=== PATIENT | male | born 1995 | race Two or more races ===

== ENCOUNTER 2019-06-12 13:08 | Emergency (ER) | payer SELFPAY ==
[2019-06-12] MEDS ORDERED: NORMAL SALINE 1000 ML 1,000 ML IV ONE (13:39)
--- NOTE | 2019-06-12 13:40 | ER Document Report ---
ED Medical Screen (RME) - General Chief Complaint: Abdominal Pain Stated Complaint: ABDOMINAL PAIN Time Seen by Provider: 06/12/19 13:32 Mode of Arrival: Ambulatory Information source: Patient Notes: Patient presents complaining of periumbilical tenderness that started about 30 minutes ago. Patient states that he has had episodes of abdominal pain off and on for several years. Patient denies any nausea vomiting diarrhea. Patient denies any fever. Patient denies any urinary symptoms. Patient does state that he is concerned he may be dehydrated. I have greeted and performed a rapid initial assessment of this patient. A comprehensive ED assessment and evaluation of the patient, analysis of test results and completion of the medical decision making process will be conducted by additional ED providers. Physical Exam - Vital signs Vitals: Temp Pulse Resp BP Pulse Ox 99.1 F 83 16 145/80 H 97 06/12/19 13:23 06/12/19 13:23 06/12/19 13:23 06/12/19 13:23 06/12/19 13:23 - General General appearance: Appears well, Alert Notes: Tenderness to the area just inferior of the umbilicus Course - Vital Signs Vital signs: Temp Pulse Resp BP Pulse Ox 99.1 F 83 16 145/80 H 97 06/12/19 13:23 06/12/19 13:23 06/12/19 13:23 06/12/19 13:23 06/12/19 13:23
[2019-06-12 14:08] LABS: ABSOLUTE EOSINOPHILS # (AUTO) 0.2 10^3/uL (0.0-0.6); ABSOLUTE LYMPHOCYTES (AUTO) 1.9 10^3/uL (0.5-4.7); ABSOLUTE MONOCYTES (AUTO) 0.7 10^3/uL (0.1-1.4); ABSOLUTE NEUT (AUTO) 5.2 10^3/uL (1.7-8.2); BASOPHILS % (AUTO) 0.6 % (0-2); EOSINOPHILS % (AUTO) 2.9 % (0-6); HEMATOCRIT 43.9 % (37.9-51.0); HEMOGLOBIN 15.6 g/dL (13.5-17.0); LYMPHOCYTES % (AUTO) 23.6 % (13-45); MEAN CORPUSCULAR HEMOGLOBIN 30.3 pg (27.0-33.4); MEAN CORPUSCULAR HGB CONC 35.5 g/dL (32.0-36.0); MEAN CORPUSCULAR VOLUME 85 fl (80-97); MONOCYTES % (AUTO) 8.2 % (3-13); PLATELET COUNT 221 10^3/uL (150-450); RED BLOOD COUNT 5.14 10^6/uL (4.35-5.55); RED CELL DISTRIBUTION WIDTH 13.6 % (11.5-14.0); SEGMENTED NEUTROPHILS % (AUTO) 64.7 % (42-78); TOTAL CELLS COUNTED % (AUTO) 100 %; WHITE BLOOD COUNT 8.1 10^3/uL (4.0-10.5)
--- NOTE | 2019-06-12 14:16 | ER Document Report ---
ED GI/ - General Chief Complaint: Abdominal Pain Stated Complaint: ABDOMINAL PAIN Time Seen by Provider: 06/12/19 13:32 Primary Care Provider: [facility] [Provider Group] - Follow up as needed [facility] [Provider Group] - Follow up as needed Mode of Arrival: Ambulatory Notes: Patient is a 23-year-old male who presents the emergency department with a chief complaint of abdominal pain. Patient reports about 30 minutes prior to arrival he had just eaten lunch which consisted of shrimp and noodles when he developed abdominal pain below his umbilicus. Patient reports he has had this same type of pain intermittently for years. Patient estimates about 5 years total. Patient reports that certain types of movement and heavy lifting seems to exacerbate the symptoms. Patient reports that his pain is actually been worse at times, but is not at its worst currently. Patient denies nausea, vomiting or diarrhea. Patient reports his last bowel movement was today. Patient reports he is a social drinker and does not drink on the weekends. Patient reports last night he had about 8-9 beers and a shot of liquor. Patient reports he did not vomit afterwards. Patient denies acid reflux or epigastric pain. Patient reports he is not currently been doing any heavy lifting. Patient reports he has been seen at different hospitals in the past for the same but was never given a diagnosis. Patient concern for possible dehydration and does report intermittent pain with urination. - Related Data Allergies/Adverse Reactions: No Known Allergies Allergy (Unverified 06/12/19 13:52) Past Medical History - General Information source: Patient - Social History Smoking Status: Current Some Day Smoker Frequency of alcohol use: Occasional Drug Abuse: None Lives with: Family Family History: None Patient has suicidal ideation: No Patient has homicidal ideation: No - Past Medical History Cardiac Medical History: Reports: None Pulmonary Medical History: Reports: None EENT Medical History: Reports: None Neurological Medical History: Reports: None Endocrine Medical History: Reports: None Renal/ Medical History: Reports: None Malignancy Medical History: Reports None GI Medical History: Reports: None Musculoskeletal Medical History: Reports None Skin Medical History: Reports None Psychiatric Medical History: Reports: None Traumatic Medical History: Reports: None Infectious Medical History: Reports: None Surgical Hx: Negative Review of Systems - Review of Systems Constitutional: No symptoms reported EENT: No symptoms reported Cardiovascular: No symptoms reported Respiratory: No symptoms reported Gastrointestinal: See HPI Genitourinary: See HPI Male Genitourinary: No symptoms reported Musculoskeletal: No symptoms reported Skin: No symptoms reported Hematologic/Lymphatic: No symptoms reported Neurological/Psychological: No symptoms reported Physical Exam - Vital signs Vitals: Temp Pulse Resp BP Pulse Ox 99.1 F 83 16 145/80 H 97 06/12/19 13:23 06/12/19 13:23 06/12/19 13:23 06/12/19 13:23 06/12/19 13:23 Interpretation: Normal - Notes Notes: GENERAL: Well-appearing, well-nourished and in no acute distress. HEAD: Atraumatic, normocephalic. EYES: Pupils equal round and reactive to light, extraocular movements intact, sclera anicteric, conjunctiva are normal. ENT: Nares patent, oropharynx clear without exudates. Moist mucous membranes. NECK: Normal range of motion, supple without lymphadenopathy or JVD. LUNGS: Breath sounds clear to auscultation bilaterally and equal. No wheezes rales or rhonchi. HEART: Regular rate and rhythm without murmurs, rubs or gallops. ABDOMEN: Soft, mild pain with palpation below umbilicus, no palpable mass or obvious hernia, normoactive bowel sounds. No guarding, no rebound. BACK: No cervical, thoracic, lumbar midline tenderness. No saddle anesthesia, normal distal neurovascular exam. GENITOURINARY: Deferred. EXTREMITIES: Normal range of motion, no pitting or edema. No clubbing or cyanosis. NEUROLOGICAL: Cranial nerves II through XII grossly intact. Normal speech, normal gait. PSYCH: Normal mood, normal affect. SKIN: Warm, Dry, normal turgor, no rashes or lesions noted. Course - Re-evaluation Re-evalutation: 06/12/19 14:15 Patient is currently receiving IV fluids. Patient resting comfortably on stretcher in no acute distress. 06/12/19 15:28 Patient is receiving IV fluids. Patient denies abdominal pain at this time. Upon reevaluation abdomen remains soft, no palpable masses, very mild tenderness below the umbilicus. I did offer the patient a CT scan, patient reports that he would like to go home and see if his pain changes or worsens. I did give the patient strict return precautions. Patient is not tachycardic, hypotensive or febrile. Patient is not a leukocytosis. Patient's lipase was slightly elevated. Patient is not having any upper abdominal pain or left upper quadrant pain. I did inform the patient to refrain from drinking. Patient to rest over the next few days and to return for worsening of symptoms. My suspicion for an acute process is low as the patient reports he has had this same type of pain intermittently over the past 5 years and that is exacerbated by certain movements. 06/12/19 15:52 At time of discharge patient's not tachycardic, febrile or hypotensive. Patient stable for discharge at this time. - Vital Signs Vital signs: Temp Pulse Resp BP Pulse Ox 97.6 F 70 18 138/74 H 97 06/12/19 15:46 06/12/19 15:46 06/12/19 15:46 06/12/19 15:46 06/12/19 15:46 - Laboratory Result Diagrams: 06/12/19 13:57 06/12/19 13:57 Laboratory results interpreted by me: 06/12/19 06/12/19 13:45 13:57 Glucose 74 L Lipase 527.0 H Urine Ketones TRACE H Patient's lab work does not show significant leukocytosis, anemia, alteration electrolytes or kidney function. Patient does have a slight elevation in his lipase of 527. Patient's urinalysis unremarkable without signs of infection. Patient does have trace ketones. Laboratory 06/12/19 06/12/19 06/12/19 13:45 13:57 13:57 WBC 8.1 RBC 5.14 Hgb 15.6 Hct 43.9 MCV 85 MCH 30.3 MCHC 35.5 RDW 13.6 Plt Count 221 Lymph % (Auto) 23.6 [place] % (Auto) 8.2 Eos % (Auto) 2.9 Baso % (Auto) 0.6 Absolute Neuts (auto) 5.2 Absolute Lymphs (auto) 1.9 Absolute Monos (auto) 0.7 Absolute Eos (auto) 0.2 Absolute Basos (auto) 0.0 Seg Neutrophils % 64.7 Sodium 142.0 Potassium 4.1 Chloride 102 Carbon Dioxide 29 Anion Gap 11 BUN 16 Creatinine 0.78 Est GFR ( Amer) > 60 Est GFR (MDRD) Non-Af > 60 Glucose 74 L Calcium 9.8 Total Bilirubin 0.4 Direct Bilirubin 0.2 Neonat Total Bilirubin Not Reportable Neonat Direct Bilirubin Not Reportable Neonat Indirect Bili Not Reportable AST 52 ALT 135 Alkaline Phosphatase 74 Total Protein 8.2 Albumin 5.0 Lipase 527.0 H Urine Color YELLOW Urine Appearance CLEAR Urine pH 5.0 Ur Specific [place] 1.030 Urine Protein NEGATIVE Urine Glucose (UA) NEGATIVE Urine Ketones TRACE H Urine Blood NEGATIVE Urine Nitrite NEGATIVE Urine Bilirubin NEGATIVE Urine Urobilinogen NEGATIVE Ur Leukocyte Esterase NEGATIVE Urine WBC (Auto) 0 Urine RBC (Auto) 0 Urine Mucus (Auto) FEW Urine Ascorbic Acid NEGATIVE Discharge - Discharge Clinical Impression: Elevated lipase Abdominal pain Qualifiers: Abdominal location: periumbilical Qualified Code(s): R10.33 - Periumbilical pain Condition: Stable Disposition: HOME, SELF-CARE Additional Instructions: *Today was seen the emergency department for abdominal pain. You have reported that this abdominal pain has been intermittent over the past 5 years. Your lab work was essentially normal despite having a slightly elevated lipase. Please refrain from drinking alcohol. Please refrain from any heavy lifting or strenuous activity. Please rest. Avoid spicy or acidic foods. Please return to the emergency department if your pain becomes more severe and steady, if you develop vomiting, diarrhea, fever greater than 100 your abdomen becomes more swollen or distended or if you have any new or worsening symptoms. *CT scan was offered to you but at this time you have stated you would like to go home and monitor for worsening of symptoms. Abdominal Pain There are many causes of abdominal pain. Pain can mean a serious problem requiring surgery (such as appendicitis). It can also be an innocent problem that goes away on its own (such as a viral infection). Often, time must pass to determine the cause of pain. The physician does not feel that hospitalization is necessary, at present. Things may change within the next 24 hours. Call the doctor or come back for re- examination if any problems occur, such as: (1) Pain that becomes more severe, steady, or becomes concentrated in one specific area. Also, pain that is more severe with movement or coughing. (2) Vomiting that persists or becomes more frequent. (3) Blood in the vomitus, urine, or bowel movements. Blood in the stool may have a tarry or black appearance. (4) Shaking chills or fever greater than 100 degrees F. (5) The abdomen becomes more distended or swollen. (6) Bowel movements cease. (7) Failure to improve as expected. Forms: Return to Work Referrals: [facility] [Provider Group] - Follow up as needed [facility] [Provider Group] - Follow up as needed
[2019-06-12 14:28] LABS: APPEARANCE,URINE CLEAR; BILIRUBIN,URINE NEGATIVE (NEGATIVE); COLOR,URINE YELLOW; GLUCOSE, URINE NEGATIVE (NEGATIVE); KETONES,URINE TRACE mg/dL (NEGATIVE); LEUKOCYTE ESTERASE,URINE NEGATIVE (NEGATIVE); NITRITE,URINE NEGATIVE (NEGATIVE); PROTEIN,URINE NEGATIVE (NEGATIVE); UROBILINOGEN,URINE NEGATIVE mg/dL (<2.0)
[2019-06-12 14:32] LABS: ALKALINE PHOSPHATASE 74 U/L (38-126); ANION GAP 11 (5-19); ASPARTATE AMINO TRANSFERASE 52 U/L (17-59); BILIRUBIN,DIRECT 0.2 mg/dL (0.0-0.4); BILIRUBIN,TOTAL 0.4 mg/dL (0.2-1.3); BLOOD UREA NITROGEN 16 mg/dL (7-20); CALCIUM 9.8 mg/dL (8.4-10.2); CARBON DIOXIDE 29 mmol/L (22-30); CHLORIDE 102 mmol/L (98-107); GLUCOSE 74 mg/dL (75-110); POTASSIUM 4.1 mmol/L (3.6-5.0); TOTAL PROTEIN 8.2 g/dL (6.3-8.2)
[2019-06-12 15:49] VITALS: BP 138/74
== END 2019-06-12 15:49 | disposition home or self-care (01) ==
LOC: ER 13:08
DX: R10.33 Periumbilical pain (principal); R74.8 Abnormal levels of other serum enzymes; X50.0XXA Overexertion from strenuous movement or load, initial encounter; F17.200 Nicotine dependence, unspecified, uncomplicated
CPT/HCPCS: 36415; 83690; 85025; 80053; 81001; J7030; 96360; 96361; 99284